=== PATIENT | female | born 2000 | race Hispanic/Latino ===

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

== ENCOUNTER → 2023-11-09 07:55 | Outpatient (CLI) | payer OTHER, SELFPAY | PROVIDERS: Family Provider Pediatrics; PCP Family Medicine; Visit Provider Nurse Practitioner Family | DX: J02.9 Acute pharyngitis, unspecified (principal) | CPT/HCPCS: 87070 ==

== ENCOUNTER → 2024-04-12 09:59 | Outpatient (CLI) | payer OTHER, SELFPAY ==
[2024-04-12 10:28] LABS: Hematocrit 40.9 % (36-46); Mean Corpuscular HGB Conc 34.2 % (30-36); Mean Corpuscular Hemoglobin 29.9 PG (26-34); Mean Corpuscular Volume 87.3 fL (80-100); Platelet Count 248 X10^3/uL (150-400); Red Blood Cell Count 4.68 X10^6/uL (4.0-5.2); Red Cell Distribution Width 13.1 % (11.6-14.8); White Blood Cell Count 8.9 X10^3/uL (4.5-11.0)
[2024-04-12 11:11] LABS: Alanine Aminotransferase 25 IU/L (<35); Albumin 4.7 g/dL (3.5-5.0); Albumin Globulin Ratio 1.5 (1.0-2.8); Alkaline Phosphatase 67 U/L (38-126); Aspartate Aminotransferase 24 IU/L (14-36); BUN Creatinine Ratio 16.4 (6-22); Bilirubin Total 0.7 mg/dL (0.2-1.3); Blood Urea Nitrogen 11 mg/dL (7-17); Calcium 9.3 mg/dL (8.4-10.2); Carbon Dioxide 28 mmol/L (22-32); Chloride 102 mmol/L (98-107); Cholesterol 171 mg/dL (140-199); Estimated Glomerular Filt Rate > 60 mL/min (>60); Globulin 3.1 g/dL (1.7-4.1); Glucose 96 mg/dL (70-100); HDL Cholesterol 42 mg/dL (40-60); HEMOLYSIS < 15 (0-50); LDL Cholesterol Calculated 112 mg/dL (<100); Sodium 139 mmol/L (137-145); Total Protein 7.8 g/dL (6.3-8.2); Triglycerides 85 mg/dL (35-150)
[2024-04-13 04:08] LABS: CRP, High Sensitivity 1.37 mg/L (0.00-3.00)
== END ==
PROVIDERS: Family Provider Pediatrics; PCP Family Medicine; Referring Provider Family Medicine; Visit Provider Family Medicine
DX: Z00.00 Encounter for general adult medical examination without abnormal findings (principal); Z83.49 Family history of other endocrine, nutritional and metabolic diseases; Z68.28 Body mass index [BMI] 28.0-28.9, adult
CPT/HCPCS: 36415; 80053; 80061; 85027; 86140

== ENCOUNTER → 2024-07-27 07:44 | Outpatient (CLI) | payer OTHER, SELFPAY ==
--- NOTE | 2024-07-27 07:45 | DI.US.S_ITS ---
US breast RT limited: 07/27/2024. BI-RADS: 1 CLINICAL: 24-year old female for right diagnostic breast ultrasound. Tyrer-Cuzick lifetime risk of 13.1%. No personal or first-degree family history of breast cancer. Current reported family history of breast cancer: maternal aunt. The patient reports a palpable abnormality (6 months) and pain (6 months) in the right breast. PRIOR EXAMS No prior examinations available. ULTRASOUND TECHNIQUE TARGETED Right Breast Ultrasound: Real-time ultrasound exam was performed focused to area of clinical and/or imaging concern. ULTRASOUND FINDINGS Right: Upper Outer at 10:30, 6 cm from nipple: There is no sonographic correlate for the palpable abnormality. Dense fibrous tissue is present. No suspicious sonographic finding present. IMPRESSION: Right * Palpable and tender area corresponds to normal fibroglandular tissue. * No evidence of malignancy. RECOMMENDATIONS Right * Clinical follow-up is recommended, and further management of palpable abnormalities or other focal signs or symptoms should be based on the results of clinical evaluation. If palpable abnormality or other concerning symptom persists or progresses, further clinical evaluation should be considered. Bilateral * Annual screening mammography beginning at age 40. COMMENTS: Findings and recommendations were conveyed to the patient during today's evaluation. OVERALL ASSESSMENT CATEGORY BI-RADS-1: Negative. ELECTRONICALLY SIGNED: Sil Little M.D. on 07/27/2024 at 08:52:39 AM PT Interpreting Station ID: [id number]
== END ==
LOC: US 07:44
PROVIDERS: Family Provider Pediatrics; PCP Family Medicine; Referring Provider Physician Assistant; Visit Provider Physician Assistant
DX: N63.10 Unspecified lump in the right breast, unspecified quadrant (principal); N64.4 Mastodynia; R92.321 Mammographic fibroglandular density, right breast; Z80.3 Family history of malignant neoplasm of breast
CPT/HCPCS: 76642